=== PATIENT | male | born 1945 | race Hispanic/Latino ===

== ENCOUNTER 2017-03-05 11:32 | Emergency (ER) | payer MEDICARE ==
[2017-03-05 11:59] VITALS: BMI 27.3
[2017-03-05 12:00] VITALS: BP 150/66; PULSE 60; RESP 16; TEMP 98.3; O2SAT 98
--- NOTE | 2017-03-05 13:31 | ED PDOC ---
Lower Extremity Pain/Injury Time Seen by Provider: 03/05/17 13:14 Chief Complaint (Nursing): Lower Extremity Problem/Injury Chief Complaint (Provider): Right calf pain History Per: Patient History/Exam Limitations: no limitations Onset/Duration Of Symptoms: Days (x2) Current Symptoms Are (Timing): Still Present Additional Complaint(s): Lonny Trinh is a 71-year-old male who presents to the emergency department complaining of right calf pain since yesterday. Patient states he was crossing the street when the pain began, and no distinct popping sensation was felt at the time. He took Aleve yesterday without relief. Patient is able to walk using a friends cane. He reports the area is painful to touch and the pain worsens when walking. Patient denies taking any blood thinners, but notes he completed chemotherapy last year for non-Hodgkin's lymphoma (and last round was in 07/2016 ). He denies any chest pain or shortness of breath. Patient was seen earlier at urgent care and was instructed to come to ED for ultrasound to have DVT ruled out. PMD: Provider from [facility] Past Medical History Reviewed: Historical Data, Nursing Documentation, Vital Signs Vital Signs: Last Vital Signs Temp 98.3 F 03/05/17 11:58 Pulse 60 03/05/17 11:58 Resp 16 03/05/17 11:58 BP 150/66 03/05/17 11:58 Pulse Ox 98 03/05/17 11:58 - Medical History PMH: CAD, HTN, Hypercholesterolemia, Malignancy (non-Hodgkin's lymphoma, s/p chemotherapy), Chronic Kidney Disease - Surgical History Surgical History: CABG - Family History Family History: States: No Known Family Hx - Living Arrangements Living Arrangements: With Family - Social History Current smoker - smoking cessation education provided: No Ex-Smoker (has not smoked in the last 12 months): Yes (quit in 1996) Alcohol: < 2 Drinks/Day Drugs: Denies - Home Medications Home Medications: Ambulatory Orders Medication Instructions Recorded Aspirin 81 mg PO DAILY 02/15/14 Ezetimibe [Zetia] 10 mg PO DAILY 02/15/14 Metoprolol Succinate 100 mg PO DAILY 02/15/14 Ramipril 2.5 mg PO DAILY 02/15/14 Rosuvastatin Calcium [Crestor] 40 mg PO DAILY 02/15/14 Cyclobenzaprine [Cyclobenzaprine 10 mg PO TID PRN #20 tab 03/05/17 HCl] Naproxen [Naprosyn] 500 mg PO BID #20 tab 03/05/17 - Allergies Allergies/Adverse Reactions: Allergies Allergy/AdvReac Type Severity Reaction Status Date / Time Penicillins Allergy RASH Verified 03/05/17 12:37 Wells Criteria for PE - Wells Criteria for Pulmonary Embolism Clinical Signs and Symptoms of DVT: Yes P.E is #1 Diagnosis, or Equally Likely: No Heart Rate >100: No Immobilization at least 3 days;Surgery previous 4 weeks: No Previous, objectively diagnosed PE or DVT: No Hemoptysis: No Malignancy w/treatment within 6 months, or palliative: No Total Score: 3 Review of Systems ROS Statement: Except As Marked, All Systems Reviewed And Found Negative Constitutional: Negative for: Fever Cardiovascular: Negative for: Chest Pain Respiratory: Negative for: Shortness of Breath, SOB with Exertion Musculoskeletal: Positive for: Leg Pain (right calf pain) Neurological: Negative for: Weakness, Numbness Physical Exam - Reviewed Nursing Documentation Reviewed: Yes Vital Signs Reviewed: Yes - Physical Exam Appears: Positive for: Well, Non-toxic, No Acute Distress Head Exam: Positive for: ATRAUMATIC, NORMAL INSPECTION, NORMOCEPHALIC Skin: Positive for: Normal Color. Negative for: Rash Eye Exam: Positive for: Normal appearance Cardiovascular/Chest: Positive for: Regular Rate, Rhythm Respiratory: Positive for: Normal Breath Sounds. Negative for: Respiratory Distress Pulses-Dorsalis Pedis (L): 2+ Pulses-Dorsalis Pedis (R): 2+ Extremity: Positive for: Calf Tenderness (right, with full range of motion of right knee and ankle), Capillary Refill (< 2 sec). Negative for: Deformity Neurologic/Psych: Positive for: Alert, Oriented - ECG O2 Sat by Pulse Oximetry: 98 (RA) Pulse Ox Interpretation: Normal - Other Rad Doppler right leg X-Ray: Read By Radiologist X-Ray Interpretation: no DVT Medical Decision Making Medical Decision Making: Time: 13:22 Initial Impression: 71 year old male with right calf pain Initial Plan: --US Duplex Lower Extrm Vein, Right --Pain meds offered but patient declined Patient is aware of all diagnostic testing results. All questions answered. Prescriptions provided for Naprosyn and Flexeril. Patient was instructed to follow up with primary doctor or with orthopedist in 2-3 days. Scribe Attestation: Documented by Roberta Braswell, acting as a scribe for Shabana Oro PA-C Provider Scribe Attestation: All medical record entries made by the Scribe were at my direction and personally dictated by me. I have reviewed the chart and agree that the record accurately reflects my personal performance of the history, physical exam, medical decision making, and the department course for this patient. I have also personally directed, reviewed, and agree with the discharge instructions and disposition. Disposition - Clinical Impression Clinical Impression: Strain of calf muscle - Patient ED Disposition Is Patient to be Admitted: No Counseled Patient/Family Regarding: Studies Performed, Diagnosis, Need For Followup, Rx Given - Disposition Referrals: Zak Hilton III, MD [Staff Provider] - Disposition Time: 15:26 Condition: STABLE Additional Instructions: Ice, rest and elevate affected area. Take prescription meds as directed as needed for pain. Follow up with primary doctor or orthopedist for any persistent symptoms. Prescriptions: Cyclobenzaprine [Cyclobenzaprine HCl] 10 mg PO TID PRN #20 tab PRN Reason: Muscle Spasm Naproxen [Naprosyn] 500 mg PO BID #20 tab Instructions: Muscle Strain (ED) Forms: [employer] (Croatian)
--- NOTE | 2017-03-05 15:12 | US ---
PROCEDURE: Right lower extremity venous duplex Doppler. HISTORY: calf pain and swelling COMPARISON: None available. TECHNIQUE: Common femoral, superficial femoral, popliteal and posterior tibial veins were evaluated. Flow was assessed with color Doppler, compressibility, assessment of phasic flow and augmentation response. FINDINGS: COMMON FEMORAL VEIN: Unremarkable. SUPERFICIAL FEMORAL VEIN: Unremarkable. POPLITEAL VEIN: Unremarkable. POSTERIOR TIBIAL VEIN: Unremarkable. OTHER FINDINGS: None. IMPRESSION: No evidence of deep venous thrombosis in the right lower extremity.
== END 2017-03-05 15:39 | disposition home or self-care (01) ==
LOC: H.ER 11:32
DX: S86.911A Strain of unspecified muscle(s) and tendon(s) at lower leg level, right leg, initial encounter (principal); N18.9 Chronic kidney disease, unspecified; Z87.891 Personal history of nicotine dependence; Z88.0 Allergy status to penicillin; Z95.1 Presence of aortocoronary bypass graft; I12.9 Hypertensive chronic kidney disease with stage 1 through stage 4 chronic kidney disease, or unspecified chronic kidney disease; I25.10 Atherosclerotic heart disease of native coronary artery without angina pectoris; Z79.82 Long term (current) use of aspirin; E78.00 Pure hypercholesterolemia, unspecified